=== PATIENT | male | born 1960 ===

== ENCOUNTER → 2019-01-01 18:23 | Outpatient (ROUT) | payer OTHER, SELFPAY ==
[2019-01-01 18:54] LABS: Free T3, Triiodothyronine Free 4.05 pg/mL (2.77-5.27); Triiodothryronine T3 Uptake 29.9 % (23.5-40.5)
[2019-01-01 19:08] LABS: Thyroid Stimulating Hormone 1.82 uIU/mL (0.47-4.68)
== END ==
PROVIDERS: Visit Provider Nurse Practitioner
DX: E03.8 Other specified hypothyroidism (principal)
CPT/HCPCS: 84443; 84479; 84481